=== PATIENT | female | born 2000 | race African-American/Black ===

== ENCOUNTER 2024-01-31 14:59 | Emergency (ER) | payer MEDICAID ==
[~2024-01-31] VITALS: Ht 167.6 cm; Wt 63.5 kg
[~2024-01-31 14:59] MED LIST: NITR100C7 PO
[2024-01-31 15:10] VITALS: BP 109/67; PULSE 96; RESP 20; TEMP 98.2; O2SAT 97
[2024-01-31 15:42] VITALS: BP 109/67; PULSE 96; RESP 20; TEMP 98.1; O2SAT 97
[2024-01-31] MEDS ORDERED: LIDO15SO10 PO (16:43)
[2024-01-31] MEDS ORDERED: CETI-366 PO (16:43)
[2024-01-31] MEDS ORDERED: GUAI237L76 PO (16:43)
== END 2024-01-31 16:53 | disposition home or self-care (01) ==
LOC: MED 14:59
DX: J06.9 Acute upper respiratory infection, unspecified (principal); B97.89 Other viral agents as the cause of diseases classified elsewhere; Z90.89 Acquired absence of other organs; Z79.899 Other long term (current) drug therapy
CPT/HCPCS: 71046; 81025; 99283